=== PATIENT | female | born 1960 | race Caucasian/White ===

== ENCOUNTER 2018-05-08 11:40 | Observation (INO) | payer BC ==
--- NOTE | 2018-05-08 14:56 | CT ---
INDICATION: Abdominal pain, question diverticulitis. CT ABDOMEN AND PELVIS WITH ORAL CONTRAST ONLY: Spiral 2.5 mm axial sections were obtained through the abdomen and pelvis with oral contrast only with sagittal and coronal reconstructions, 05/08/2018, and compared with 03/03/2015. Total exam DLP = 600.59 mGy-cm. There are now noted linear densities in the middle lobe, which may represent atelectasis and/or fibrosis. Minimal similar finding is noted in the right lower lobe near the lung base and in the lingula and left lower lobe. No definite active infiltrate or effusion was seen. The gallbladder is absent, compatible with history of its removal. The heart appeared normal in size. No pericardial effusion was seen. The spleen, pancreas, adrenals, and for the most part kidneys appeared normal. No evidence of obstructive uropathy was seen. No retroperitoneal masses were identified. Retroperitoneal lymphadenopathy is mild and nonspecific. Diverticulosis coli is noted in the descending and sigmoid colon. In the area of the proximal descending colon at the splenic flexure, there is again noted what appears to be recurrent diverticulitis with fairly marked thickening of the wall and pericolonic fat stranding, compatible with localized peritonitis. Some retrocolic fluid is noted descending into the lower abdomen on the left. A definite focal abscess was not identified. With the degree of thickening of the wall, the possibility of a neoplastic process is difficult to entirely exclude. The thickening is significantly more severe than on the previous examination. The degree of diverticulitis appears to be similar to the previous examination with no definite focal abscess formation or free air identified. No other organomegaly, mass lesions, or free fluid collections were identified in the abdomen or pelvis. The uterus is absent, compatible with history of its removal. Evidence of hernia repairs is seen and bladder repair is seen. The appendix appeared essentially normal, visualized on axial images #199 through #250. IMPRESSION: Proximal descending colon diverticulitis at the hepatic flexure, fairly marked thickening of the wall is noted, compared with the previous study. Followup is recommended to exclude the possibility of neoplasia, although diverticulitis may simply be present with this appearance, along with localized peritonitis in the pericolic gutter and pericolonic at the hepatic flexure. Report was called to Dr. Dakota Shi at 1437 hours on 05/08/2018. [facility]
[2018-05-08] MEDS ORDERED: Morphine 2 MG/ML Syringe IV PRN (15:01)
[2018-05-08] MEDS ORDERED: Acetaminophen/HYDROcodone 325-5 MG Tab PO PRN (15:02)
[2018-05-08] MEDS ORDERED: Ondansetron 4 MG/2 ML SDV IVPUSH PRN (15:06)
[2018-05-08] MEDS: Dextrose 5%-Lactated Ringers 1,000 ML IV SCH (16:39)
[2018-05-08] MEDS: Acetaminophen/HYDROcodone 325-5 MG Tab PO PRN ×2 (16:52→21:23)
[2018-05-08] MEDS: metroNIDAZOLE/Normal Saline 500 MG in Premix Bag 1 BAG IV SCH (16:54)
[2018-05-08] MEDS ORDERED: Sodium Chloride 0.9% 10 ML Syringe FLUSH PRN (17:26)
[2018-05-08] MEDS: Ciprofloxacin in D5W 400 MG in Premix Bag 1 BAG IV SCH ×2 (18:07)
[2018-05-09] MEDS: metroNIDAZOLE/Normal Saline 500 MG in Premix Bag 1 BAG IV SCH ×4 (00:34→23:45)
[2018-05-09] MEDS: Acetaminophen/HYDROcodone 325-5 MG Tab PO PRN ×6 (01:24→21:57)
[2018-05-09] MEDS: Dextrose 5%-Lactated Ringers 1,000 ML IV SCH ×2 (03:55→23:39)
[2018-05-09] MEDS: Ciprofloxacin in D5W 400 MG in Premix Bag 1 BAG IV SCH ×4 (05:26→17:59)
--- NOTE | 2018-05-09 07:48 | PCM.PN ---
- General Info Date of Service: 05/09/18 Admission Dx/Problem (Free Text): Acute Diverticulitis Functional Status: Reports: Other (Pain improved but still present, Able to breathe easier) - Review of Systems Gastrointestinal: Reports: Nausea (last night but none this am), Other (Had loose BM during the night) Genitourinary: Denies: Dysuria - Patient Data Vitals - Most Recent: Last Vital Signs Temp 98.6 F 05/09/18 00:30 Pulse 88 05/09/18 00:30 Resp 18 05/09/18 00:30 BP 102/65 05/09/18 00:30 Pulse Ox 90 L 05/09/18 00:30 Weight - Most Recent: 141 lb 7 oz I&O - Last 24 Hours: Intake & Output 05/08/18 05/09/18 05/09/18 22:59 06:59 14:59 Intake Total 2002 1180 Output Total 2700 800 Balance -697 381 Lab Results Last 24 Hours: Laboratory Results - last 24 hr 05/09/18 05/09/18 Range/Units 06:08 06:08 WBC 10.1 (4.5-12.0) X10-3/uL RBC 3.90 (3.23-5.20) x10(6)uL Hgb 12.1 (11.5-15.5) g/dL Hct 35.8 (30.0-51.3) % MCV 91.8 (80-96) fL MCH 31.1 (27.7-33.6) pg MCHC 33.9 (32.2-35.4) g/dL RDW 12.3 (11.5-15.5) % Plt Count 339 (125-369) X10(3)uL MPV 7.3 L (7.4-10.4) fL Neut % (Auto) 76.1 (46-82) % Lymph % (Auto) 15.4 (13-37) % [place] % (Auto) 7.3 (4-12) % Eos % (Auto) 1 (1.0-5.0) % Baso % (Auto) 0 (0-2) % Neut # (Auto) 7.7 (1.6-8.3) # Lymph # (Auto) 1.6 (0.6-5.0) # [place] # (Auto) 0.7 (0.0-1.3) # Eos # (Auto) 0.1 (0.0-0.8) # Baso # (Auto) 0.0 (0.0-0.2) # Sodium 139 (135-145) mmol/L Potassium 3.8 (3.5-5.3) mmol/L Chloride 106 (100-110) mmol/L Carbon Dioxide 27 (21-32) mmol/L BUN 6 L (7-18) mg/dL Creatinine 0.8 (0.55-1.02) mg/dL Est Cr Clr Drug Dosing 61.36 mL/min Estimated GFR (MDRD) > 60 (>60) BUN/Creatinine Ratio 7.5 L (9-20) Glucose 137 H (80-116) mg/dL Calcium 8.7 (8.6-10.2) mg/dL Total Bilirubin 0.5 (0.1-1.3) mg/dL AST 58 H (5-25) IU/L ALT 69 H (12-36) U/L Alkaline Phosphatase 109 (56-112) IU/L Total Protein 6.6 (6.0-8.0) g/dL Albumin 2.7 L (3.5-5.2) g/dL Globulin 3.9 g/dL Albumin/Globulin Ratio 0.7 Med Orders - Current: Current Medications Hydrocodone Bitart/Acetaminophen ([place] 325-5 Mg) 1 tab PO Q4H PRN PRN Reason: PAIN Hydrocodone Bitart/Acetaminophen ([place] 325-5 Mg) 2 tab PO Q4H PRN PRN Reason: PAIN Last Admin: 05/09/18 05:38 Dose: 2 tab Dextrose/Lactated Ringer's (Dextrose 5%-Lactated Ringers) 1,000 mls @ 125 mls/ hr IV ASDIRECTED [facility] Last Admin: 05/09/18 03:55 Dose: 125 mls/hr Ciprofloxacin/Dextrose 400 mg/ (Premix) 200 mls @ 200 mls/hr IV Q12H [facility] Last Admin: 05/09/18 05:26 Dose: 200 mls/hr Metronidazole 500 mg/ Premix 100 mls @ 100 mls/hr IV Q8H [facility] Last Admin: 05/09/18 00:34 Dose: 100 mls/hr Morphine Sulfate (Morphine) 2 mg IV Q1H PRN PRN Reason: PAIN Ondansetron HCl (Zofran) 4 mg IVPUSH Q6H PRN PRN Reason: NAUSEA Sodium Chloride (Saline Flush) 10 ml FLUSH ASDIRECTED PRN PRN Reason: saline lock flush Last Admin: 05/08/18 17:00 Dose: 10 ml - Exam General: Alert, Oriented Lungs: Normal Respiratory Effort GI/Abdominal Exam: Distended (mild this AM. ), Tender (beer still runner compounder in LUQ but improved with less guarding this AM) - Problem List Review Problem List Initiated/Reviewed/Updated: Yes - My Orders Last 24 Hours: My Active Orders 05/08/18 15:01 Morphine 2 mg IV Q1H PRN 05/08/18 15:02 Acetaminophen/HYDROcodone [[place] 325-5 MG] 1 tab PO Q4H PRN Acetaminophen/HYDROcodone [[place] 325-5 MG] 2 tab PO Q4H PRN 05/08/18 15:06 Ondansetron [Zofran] 4 mg IVPUSH Q6H PRN 05/08/18 15:15 Dextrose 5%-Lactated Ringers 1,000 ml IV ASDIRECTED 05/08/18 15:20 Admission Status [Patient Status] [ADT] Routine Intake and Output [RC] 06,14,22 Vital Signs [RC] 08,12,16,21 05/08/18 16:00 metroNIDAZOLE/Normal Saline [Flagyl 500 MG in NS 100 ML] 500 mg Premix Bag 1 bag IV Q8H 05/08/18 17:00 Ciprofloxacin in D5W [Cipro in D5W 400 MG/200 ML] 400 mg Premix Bag 1 bag IV Q12H 05/08/18 17:26 Sodium Chloride 0.9% [Saline Flush] 10 ml FLUSH ASDIRECTED PRN 05/08/18 Dinner Clear Liquid Diet [DIET] 05/09/18 Breakfast Full Liquid Diet [DIET] - Assessment Assessment:: Acute Diverticulitis of Splenic Flexure - improving - Plan Plan:: Continue IV Antibiotics slowly advance diet slow IV
[2018-05-09] MEDS: Levothyroxine 100 MCG Tab PO SCH (10:38)
[2018-05-10] MEDS: Acetaminophen/HYDROcodone 325-5 MG Tab PO PRN (03:16)
[2018-05-10] MEDS: Ciprofloxacin in D5W 400 MG in Premix Bag 1 BAG IV SCH ×2 (05:40)
[2018-05-10] MEDS: Levothyroxine 100 MCG Tab PO SCH (06:07)
--- NOTE | 2018-05-10 07:48 | PCM.PN ---
- General Info Date of Service: 05/10/18 Admission Dx/Problem (Free Text): Acute Diverticulitis Functional Status: Reports: Pain Controlled (LUQ pain improved, now able to breath easier) - Review of Systems Gastrointestinal: Denies: Nausea (taking fluids well PO, has eaten small amounts of soft food and tolerated satisfactory) Musculoskeletal: Reports: No Symptoms - Patient Data Vitals - Most Recent: Last Vital Signs Temp 98.0 F 05/09/18 21:00 Pulse 75 05/09/18 21:00 Resp 18 05/09/18 21:00 BP 108/78 05/09/18 21:00 Pulse Ox 94 L 05/09/18 21:00 Weight - Most Recent: 141 lb 7 oz I&O - Last 24 Hours: Intake & Output 05/09/18 05/09/18 05/10/18 14:59 22:59 06:59 Intake Total 210 1089 1546 Output Total 700 Balance 772 966 8301 Med Orders - Current: Current Medications Hydrocodone Bitart/Acetaminophen ([place] 325-5 Mg) 1 tab PO Q4H PRN PRN Reason: PAIN Hydrocodone Bitart/Acetaminophen ([place] 325-5 Mg) 2 tab PO Q4H PRN PRN Reason: PAIN Last Admin: 05/10/18 03:16 Dose: 2 tab Citalopram Hydrobromide (Celexa) 40 mg PO DAILY@1200 [facility] Last Admin: 05/09/18 13:06 Dose: 40 mg Dextrose/Lactated Ringer's (Dextrose 5%-Lactated Ringers) 1,000 mls @ 50 mls/ hr IV ASDIRECTED [facility] Last Admin: 05/09/18 23:39 Dose: 125 mls/hr Ciprofloxacin/Dextrose 400 mg/ (Premix) 200 mls @ 200 mls/hr IV Q12H [facility] Last Admin: 05/10/18 05:40 Dose: 200 mls/hr Metronidazole 500 mg/ Premix 100 mls @ 100 mls/hr IV Q8H [facility] Last Admin: 05/09/18 23:45 Dose: 100 mls/hr Levothyroxine Sodium (Synthroid) 100 mcg PO 0600 [facility] Last Admin: 05/10/18 06:07 Dose: 100 mcg Morphine Sulfate (Morphine) 2 mg IV Q1H PRN PRN Reason: PAIN Ondansetron HCl (Zofran) 4 mg IVPUSH Q6H PRN PRN Reason: NAUSEA Sodium Chloride (Saline Flush) 10 ml FLUSH ASDIRECTED PRN PRN Reason: saline lock flush Last Admin: 05/08/18 17:00 Dose: 10 ml - Exam General: Alert, Oriented Lungs: Normal Respiratory Effort GI/Abdominal Exam: Soft, Tender (in LUQ but improved, abdomen softer with less guarding) - Problem List Review Problem List Initiated/Reviewed/Updated: Yes - My Orders Last 24 Hours: My Active Orders 05/09/18 09:10 Code Status [Resuscitation Status] Routine 05/09/18 09:30 Levothyroxine [Synthroid] 100 mcg PO 0600 05/09/18 12:00 Citalopram [Celexa] 40 mg PO DAILY@1200 05/09/18 Breakfast Full Liquid Diet [DIET] - Assessment Assessment:: Acute Diverticulitis of Splenic Flexure - improving - Plan Plan:: Discharge Continue Cipro and Flagyl at home PO Soft diet until feeling better
[2018-05-10] MEDS: metroNIDAZOLE/Normal Saline 500 MG in Premix Bag 1 BAG IV SCH (09:07)
[2018-05-10 16:07] VITALS: BP 110/69
== END 2018-05-10 13:10 | disposition home or self-care (01) ==
LOC: FB.DI 11:40 → UNDOADMOB 14:48 → FB.MS 14:48
PROVIDERS: ADMIT Surgery; ATTEND Surgery
DX: K57.32 Diverticulitis of large intestine without perforation or abscess without bleeding (principal); E03.9 Hypothyroidism, unspecified; G47.30 Sleep apnea, unspecified; F32.9 Major depressive disorder, single episode, unspecified; Z79.899 Other long term (current) drug therapy; Z91.013 Allergy to seafood
CPT/HCPCS: 36415; 74176; 80053; 85025; 96361; 96365; 96366; 96367; A9270-GY; G0378; J0744; J3490; J7042; J7050